=== PATIENT | female | born 1985 | race African-American/Black ===

== ENCOUNTER 2020-04-07 00:07 | Inpatient (IN) ==
[2020-04-07] MEDS ORDERED: ONDANSETRON 4 MG/2 ML VIAL IV PRN ×2 (00:22→08:24)
[2020-04-07] MEDS ORDERED: MEPERIDINE 50 MG/1 ML VIAL IV PRN (00:22)
[2020-04-07] MEDS ORDERED: OXYTOCIN/LR 20 UNIT/1,000 ML BAG IV SCH (00:30)
[2020-04-07 01:06] LABS: Alanine Aminotransferase 18 U/L (13-56); Albumin 2.7 G/DL (3.4-5.0); Alkaline Phosphatase 120 U/L (45-117); Aspartate Amino Transferase 12 U/L (0-37); Bilirubin,Total < 0.39 MG/DL (0.2-1.0); Blood Urea Nitrogen 8 MG/DL (7-18); Calcium 8.4 MG/DL (8.5-10.1); Estimated Glom Filtration Rate 150 ML/MIN; Glucose 106 MG/DL (74-106); Osmolality,Calculated 274.5 MOS/KG (273-304)
[2020-04-07] MEDS: LACTATED RINGERS 1,000 ML IV SCH ×2 (01:15→06:08)
[2020-04-07] MEDS ORDERED: AMPICILLIN INJ 2,000 MG in SODIUM CHLORIDE 0.9% 100 ML IV ONE (01:15)
[2020-04-07] MEDS: BUTORPHANOL 2 MG/ML VIAL IV PRN ×2 (01:20→04:10)
[2020-04-07 01:38] LABS: Basophils % 0.4 % (0.0-0.8); Eosinophils # 0.1 10*3/uL (0.0-0.87); Eosinophils % 1.4 % (0.00-10.9); Hematocrit 32.8 VOL% (35.7-47.0); Hemoglobin 10.8 GM/DL (12.0-16.0); Immature Granulocytes % 0.5 %; Immature Granulocytes Absolute 0.04 #; Lymphocytes # 1.9 10*3/uL (1.4-4.0); Lymphocytes % 24.4 % (21.3-54.2); Mean Corpuscular HGB Conc 32.9 GM/DL (32-36); Mean Corpuscular Volume 88.4 FL (87-102); Mean Platelet Volume 10.1 FL (9.6-12.0); Monocytes % 9.4 % (1.7-12.7); Neutrophils % 63.9 % (38.7-73.9); Platelet Count 265 T/CUMM (130-400); Red Blood Count 3.71 MC/CUMM (3.8-5.5); White Blood Count 7.9 T/CUMM (4-12)
[2020-04-07] MEDS ORDERED: ONDANSETRON 4 MG/2 ML VIAL IV ONE (04:57)
[2020-04-07] MEDS ORDERED: NALOXONE 0.4 MG/ML VIAL IV PRN (04:57)
[2020-04-07] MEDS ORDERED: diphenhydrAMINE 50 MG/1 ML VIAL IV PRN (04:57)
[2020-04-07] MEDS ORDERED: CITRIC ACID/SODIUM CITRATE 30 ML UDCUP PO ONE (04:59)
[2020-04-07] MEDS ORDERED: fentaNYL 2 MCG/ROPIV 0.2% EPID 100 ML EPIDURAL SCH (05:00)
[2020-04-07] MEDS ORDERED: FAMOTIDINE 20 MG/2 ML VIAL IV ONE (05:00)
[2020-04-07] MEDS ORDERED: AMPICILLIN INJ 1,000 MG in SODIUM CHLORIDE 0.9% 100 ML IV SCH (05:15)
[2020-04-07] MEDS ORDERED: miSOPROStoL 200 MCG TABLET ONE (06:12)
[2020-04-07] MEDS ORDERED: TRANEXAMIC ACID 1,000 MG/10 ML VIAL ONE (06:12)
[2020-04-07] MEDS ORDERED: OXYTOCIN/LR 20 UNIT/1,000 ML BAG IV ONE ×2 (06:12→08:24)
[2020-04-07] MEDS ORDERED: CARBOPROST TROMETHAMINE 250 MCG/ML AMP IM ONE (06:13)
[2020-04-07] MEDS ORDERED: METHYLERGONOVINE 0.2 MG/1 ML AMP ONE (06:13)
[2020-04-07 06:36] LABS: Bacteria,Urine Occasional /HPF (Few); Bilirubin,Urine Negative (Negative); Blood, Urine Small mg/dL (Negative); Glucose,Urine (UA) Negative (Negative); Ketones,Urine Negative (Negative); Mucus,Urine Occasional /LPF (Occasional); Nitrite,Urine Negative (Negative); Protein,Urine Negative; RBC,Urine 1 /HPF (0-4); Squamous Epithelial Cell,Urine Occasional /HPF (0-10); Urine Appearance CLEAR (Clear); Urine Color Yellow (Yellow); Urine Urobilinogen < 2.0 EU/DL (0.2-1.0); WBC,Urine 1 /HPF (0-6)
[2020-04-07] MEDS: ePHEDrine 50 MG/ML VIAL IV PRN ×3 (06:38→06:56)
[2020-04-07] MEDS ORDERED: DIPH/TET/ACEL PERT BOOSTER VACCINE 0.5 ML VIAL IM ONE (08:24)
[2020-04-07] MEDS ORDERED: RHO(D) IMMUNE GLOBULIN 300 MCG SYRINGE IM ONE (08:24)
[2020-04-07] MEDS ORDERED: MEASLES/MUMPS/RUBELLA VACCINE 0.5 ML VIAL SUBCUT ONE (08:24)
[2020-04-07] MEDS ORDERED: LANOLIN 50% CREAM 0.3 OZ TUBE TOP PRN (08:24)
[2020-04-07] MEDS ORDERED: ACETAMINOPHEN 325 MG TABLET PO PRN (08:24)
[2020-04-07] MEDS ORDERED: oxyCODONE/ACETAMINOPHEN 5-325 MG TABLET PO PRN ×2 (08:24)
[2020-04-07] MEDS ORDERED: WITCH HAZEL PADS 100/JAR TOP PRN (08:24)
[2020-04-07] MEDS ORDERED: BISACODYL 10 MG SUPP RECTAL PRN (08:24)
[2020-04-07] MEDS ORDERED: BENZOCAINE 20%/MENTHOL 0.5% SPRAY 56 GM CAN TOP PRN (08:24)
[2020-04-07] MEDS ORDERED: HYDROCORTISONE 2.5% RECTAL CREAM 30 GM TUBE TOP PRN (08:24)
[2020-04-07 08:38] LABS: Cord Venous Blood HCO3 18.2 MMOL/L; Cord Venous Blood PCO2 52.1 MMHG; Cord Venous Blood PO2 36.9
[2020-04-07 11:48] VITALS: BP 125/78
[2020-04-07] MEDS: IBUPROFEN 800 MG TABLET PO PRN ×2 (14:18→21:22)
[2020-04-07] MEDS: DOCUSATE SODIUM 100 MG CAPSULE PO SCH ×2 (21:22→23:25)
[2020-04-08 05:24] LABS: Basophils % 0.4 % (0.0-0.8); Eosinophils # 0.2 10*3/uL (0.0-0.87); Eosinophils % 2.9 % (0.00-10.9); Hematocrit 29.3 VOL% (35.7-47.0); Hemoglobin 9.5 GM/DL (12.0-16.0); Immature Granulocytes % 0.5 %; Immature Granulocytes Absolute 0.04 #; Lymphocytes # 2.1 10*3/uL (1.4-4.0); Lymphocytes % 26.6 % (21.3-54.2); Mean Corpuscular HGB Conc 32.4 GM/DL (32-36); Mean Corpuscular Volume 89.1 FL (87-102); Mean Platelet Volume 10.1 FL (9.6-12.0); Neutrophils % 60.6 % (38.7-73.9); Platelet Count 229 T/CUMM (130-400); Red Blood Count 3.29 MC/CUMM (3.8-5.5); Red Cell Distribution Width 14.2 % (9.3-17.3)
[2020-04-08] MEDS: DOCUSATE SODIUM 100 MG CAPSULE PO SCH (09:31)
[2020-04-08] MEDS: IBUPROFEN 800 MG TABLET PO PRN (09:35)
== END 2020-04-08 12:51 | disposition home or self-care (01) | DRG 807 ==
LOC: N.LDOUT 00:07 → N.LD 00:10
PROVIDERS: ADMIT Obstetrics & Gynecology; ATTEND Obstetrics & Gynecology